=== PATIENT | female | born 1950 | race Caucasian/White ===

== ENCOUNTER 2020-03-29 16:04 | Outpatient (REF) | payer MEDICARE, SELFPAY | END 2020-03-29 16:05 | disposition home or self-care (01) | LOC: HO.MANLNP 16:04 | PROVIDERS: PCP Internal Medicine; Visit Provider Internal Medicine | DX: N39.0 Urinary tract infection, site not specified (principal) | CPT/HCPCS: 87086 ==

== ENCOUNTER → 2020-09-07 10:45 | Outpatient (BNVA) | payer MEDICARE, SELFPAY | PROVIDERS: PCP Internal Medicine; Visit Provider Orthopaedic Surgery | DX: M65.332 Trigger finger, left middle finger (principal) | CPT/HCPCS: 99202 ==

== ENCOUNTER → 2020-10-06 11:06 | Outpatient (BNVA) | payer MEDICARE, SELFPAY | PROVIDERS: Visit Provider Orthopaedic Surgery | DX: M65.332 Trigger finger, left middle finger (principal) | CPT/HCPCS: 99212; J1100 ==

== ENCOUNTER 2021-05-30 16:13 | Outpatient (REF) | payer MEDICARE, SELFPAY ==
[2021-05-30 17:49] LABS: Calcium 10.2 mg/dL (8.4-10.2)
[2021-05-31 14:20] LABS: Calcium (PTHI) 9.8 mg/dL (8.6-10.4); PTHI 35 pg/mL (14-64)
== END 2021-05-30 16:14 | disposition home or self-care (01) ==
LOC: HO.MANLDS 16:13
PROVIDERS: PCP Physician Assistant; Visit Provider Physician Assistant
DX: E83.52 Hypercalcemia (principal)
CPT/HCPCS: 36415; 82310; 83970

== ENCOUNTER → 2021-06-28 10:55 | Outpatient (BNVA) | payer MEDICARE, SELFPAY | PROVIDERS: PCP Physician Assistant; Visit Provider Orthopaedic Surgery | DX: M65.332 Trigger finger, left middle finger (principal); M65.351 Trigger finger, right little finger | CPT/HCPCS: 20550; 99212; J1100 ==

== ENCOUNTER 2021-09-28 13:46 | Emergency (ER) | payer MEDICARE, SELFPAY ==
--- NOTE | 2021-09-28 | ECG_ITS ---
Test Reason : HYPERTENTION Blood Pressure : / mmHG Vent. Rate : 082 BPM Atrial Rate : 082 BPM P-R Int : 154 ms QRS Dur : 126 ms QT Int : 408 ms P-R-T Axes : 068 -27 019 degrees QTc Int : 476 ms Normal sinus rhythm Right bundle branch block Inferior infarct , age undetermined Abnormal ECG No previous ECGs available Referred By: Generic ED Physician Electronically Signed By:Colt Grady
--- NOTE | ~2021-09-28 | CT_ITS ---
EXAMINATION: CT HEAD WITHOUT CONTRAST CLINICAL INFORMATION: 71-year-old female with severe headache COMPARISON: None TECHNIQUE: Contiguous axial imaging was performed from the skull base to vertex without intravenous administration of contrast. This CT examination was performed using dose optimization techniques as appropriate, variously including the following: *Automated exposure control *Adjustment of mA and/or kV according to patient size (this includes techniques or standardized protocols for targeted exams where dose is matched to indication/reason for exam; i.e. extremities or head) *Use of iterative reconstruction technique DLP: 676 mGy-cm FINDINGS: There is no evidence of acute intracranial hemorrhage or territorial infarction. No abnormal mass effect or midline shift is seen. Malcolm to white matter differentiation is well preserved. No extra-axial fluid collections are identified. The ventricles are normal in size. There is no abnormal attenuation within the brain parenchyma. The osseous structures and soft tissues are normal. The mastoid air cells and visualized portions of the paranasal sinuses are well aerated. CT/CT head/brain wo con IMPRESSION: No acute intracranial pathology.
[2021-09-28 14:45] VITALS: BP 214/110; PULSE 91; RESP 18; TEMP 36.6; O2SAT 96; BMI 29.0
[2021-09-28 15:14] LABS: MANUAL DIFF FLAG NO
[2021-09-28 15:17] LABS: Basophils Absolute Auto 0.1 X10*3/uL (0.0-0.2); Basophils Percent Auto 0.8 % (0-2); Eosinophils Absolute Auto 0.2 X10*3/uL (0.0-0.4); Eosinophils Percent Auto 2.6 % (0-4); Hematocrit 41.7 % (37.0-47.0); Imm Gran Abs Auto 0.02 X10*3/uL (0.00-0.03); Imm Gran Pct Auto 0.3 % (0.0-0.4); Lymphocytes Absolute Auto 1.4 X10*3/uL (1.2-4.9); Lymphocytes Percent Auto 23.1 % (20-40); Mean Corpuscular HGB Conc 33.6 g/dl (31.0-35.0); Mean Corpuscular Hemoglobin 31.9 pg (27.0-33.0); Monocytes Absolute Auto 0.6 X10*3/uL (0.1-1.2); Monocytes Percent Auto 8.9 % (2-11); Neutrophils Percent Auto 64.3 % (45-73); Platelet Count 317 X10*3/uL (160-400); Red Blood Count 4.39 X10*6/uL (4.20-5.50); Red Cell Distribution Width 12.1 % (11.0-16.0); White Blood Count 6.2 X10*3/uL (4.8-10.8)
[2021-09-28 15:29] LABS: Anion Gap 12 (12-20); Blood Urea Nitrogen 13 mg/dL (9-16); Calcium 9.8 mg/dL (8.4-10.2); Carbon Dioxide 27 mmol/L (22-29); Chloride 103 mmol/L (96-108); Creatinine Clr Calc Pharmacy 53.3; Estimated Glomerular Filt Rate > 60; Glucose Random 101 mg/dL (60-115); Potassium 4.4 mmol/L (3.3-5.1); Sodium 138 mmol/L (135-145)
[2021-09-28 17:07] VITALS: BP 187/103; PULSE 88; RESP 18; TEMP 36.3; O2SAT 97
[2021-09-28 19:20] VITALS: BP 205/95; PULSE 78; RESP 18; O2SAT 97
--- NOTE | 2021-09-28 19:37 | ED.GENADULT ---
HPI - General Adult General Chief complaint: General Medical Stated complaint: HBP Time Seen by Provider: 09/28/21 19:04 Source: patient Mode of arrival: ambulatory Limitations: no limitations History of Present Illness HPI narrative: Patient comes emergency room complaining of a headache and high blood pressure. Patient states that she has been on multiple blood pressure medications, has had multiple adverse effects, patient has a list, she is unwilling to take lisinopril, hydrochlorothiazide, amlodipine, metoprolol, clonidine and diltiazem. When I asked the patient what her adverse effects are, she says it is anxiety, mental fogginess. Patient did not describe any specific allergic reactions, only adverse effects. At this time, patient has mild headache, no chest pain or shortness of breath. Related Data Home Medications Medication Instructions Recorded Confirmed albuterol sulfate 90 mcg/actuation INHALATION 09/07/20 aerosol inhaler alprazolam 0.25 mg tablet 0.25 mg PO BID PRN 09/07/20 amlodipine 5 mg tablet 5 mg PO DAILY 09/07/20 fluticasone propionate 50 spray INTRANASAL 09/07/20 mcg/actuation nasal spray,suspension lisinopril 20 1 tab PO DAILY 09/07/20 mg-hydrochlorothiazide 12.5 mg tablet omeprazole 20 mg capsule,delayed 20 mg PO BID 09/07/20 release Previous Rx's Medication Instructions Recorded hydralazine 25 mg tablet 25 mg PO TID 30 Days #90 tab 09/28/21 Allergies Allergy/AdvReac Type Severity Reaction Status Date / Time No Known Allergies Allergy Verified 06/28/21 11:26 Review of Systems Review of Systems: Constitutional : No Weight loss, No Fever, No Chills, No Night Sweats, No Fatigue, No Malaise ENT/Mouth : No Hearing loss, No Ear Pain, No Nasal Congestion, No Sinus Pain, No Hoarseness, No sore throat, No Rhinorrhea, No Swallowing Difficulty Eyes: No Eye Pain, No Swelling, No Redness, No Foreign Body, No Discharge, No Vision Changes Cardiovascular : No Chest Pain, No SOB, No Dyspnea on Exertion, No Orthopnea, No Edema, No Palpitations, complaining of hypertension Respiratory : No Cough, No Sputum, No Wheezing, No Smoke Exposure, No Dyspnea Gastrointestinal : No Nausea, No Vomiting, No Diarrhea, No Constipation, No abdominal Pain, No Hematochezia, No Melena Genitourinary : no irregular bleeding, No Dysuria, No Urinary Frequency, No Hematuria, No Urinary Incontinence, No Urgency, No Flank Pain, No Urinary Flow Changes, No Hesitancy Musculoskeletal : No joint pain, No Myalgias, No Joint Swelling Skin : No Skin Lesions, No rash Neuro : No Weakness, No Numbness, No Paresthesias, No Loss of Consciousness, No Dizziness, c/o of Headache Psych : Complaining of anxiety, No Depression, No SI/HI/AH/VH, No Social Issues, Heme/Lymph: No Bruising, No Bleeding,No Lymphadenopathy Endocrine : No Polyuria, No Polydipsia, No Temperature Intolerance [facility] Past Medical History Medical History Asthma HTN (hypertension) Surgical History History of hernia repair History of spinal surgery Social History Social History Alcohol intake: never Advance Directives: Yes Advance Directives Information Provided: No Advance Directives on File: No Current occupational status: retired Current occupation: right handed Physical Exam ED Vital Signs: Vital Signs - 24 hr 09/28/21 14:45 09/28/21 17:07 09/28/21 19:20 Temperature 97.8 F 97.4 F Pulse Rate 91 88 78 Respiratory Rate 18 18 18 Blood Pressure 214/110 H 187/103 H 205/95 H Pulse Oximetry 96 97 97 09/28/21 20:28 09/28/21 20:59 Temperature Pulse Rate Respiratory Rate Blood Pressure 185/86 H 146/77 H Pulse Oximetry BMI result Body Mass Index 29.0 Const Other: Appearance: Alert. Oriented X3. No acute distress. Eyes: Pupils equal, round and reactive to light. ENT: Pharynx normal. Neck: Normal inspection. Neck supple. No lymph nodes noted. No crepitus CVS: Normal heart rate and rhythm. Pulses normal. Normal S1 and S2 Respiratory: No respiratory distress. Breath sounds normal. No Wheezing. No rales Abdomen: Soft and nontender. No rigidity. No distention. Skin: Skin warm and dry. Normal skin color. Normal skin turgor. Extremities: No lower extremity edema. No Lacerations. No Rash Neuro: Oriented X 3. No motor deficit. No sensory deficit. Moving all extremities. No slurred speech. CN 2 through 12 grossly intact Psych: calm, cooperative, normal affect Course Course Course Narrative: CT pending. Troponin pending. EKG does not show any acute changes. As mentioned above, patient does not want any medication that includes lisinopril, hydrochlorothiazide, amlodipine, metoprolol, clonidine oral diltiazem. Patient is being given hydralazine, current blood pressure 205/[address] is negative for brain bleed. Patient requested ibuprofen rather than Tylenol. Patient states that she has an appointment pending with Dr. Asencio/cardiology in approximately 1 week Patient's blood pressure 146/77, patient tolerated well the hydralazine with no side effects. CT scan negative for acute pathology Medical Decision Making Lab Data Result diagrams: 09/28/21 15:05 09/28/21 15:05 Labs: Lab Results 09/28/21 09/28/21 09/28/21 Range/Units 15:05 15:05 15:05 WBC 6.2 (4.8-10.8) X10*3/uL RBC 4.39 (4.20-5.50) X10*6/uL Hgb 14.0 (12.0-16.0) g/dl Hct 41.7 (37.0-47.0) % MCV 95.0 (80.0-98.0) fL MCH 31.9 (27.0-33.0) pg MCHC 33.6 (31.0-35.0) g/dl RDW 12.1 (11.0-16.0) % Plt Count 317 (160-400) X10*3/uL MPV 9.0 L (9.4-12.3) fL Immature Gran % (Auto) 0.3 (0.0-0.4) % Neut % (Auto) 64.3 (45-73) % Lymph % (Auto) 23.1 (20-40) % Preston % (Auto) 8.9 (2-11) % Eos % (Auto) 2.6 (0-4) % Baso % (Auto) 0.8 (0-2) % Lymph # (Auto) 1.4 (1.2-4.9) X10*3/uL Preston # (Auto) 0.6 (0.1-1.2) X10*3/uL Eos # (Auto) 0.2 (0.0-0.4) X10*3/uL Baso # (Auto) 0.1 (0.0-0.2) X10*3/uL Abs Immat Gran (auto) 0.02 (0.00-0.03) X10*3/uL Absolute Neuts (auto) 4.0 (2.0-8.3) x10*3/uL Absolute Nucleated RBC 0.000 (0.0-0.012) X10*3/uL Nucleated RBC % (auto) 0.0 (0.0-0.2) /100WBC Sodium 138 (135-145) mmol/L Potassium 4.4 (3.3-5.1) mmol/L Chloride 103 (96-108) mmol/L Carbon Dioxide 27 (22-29) mmol/L Anion Gap 12 (12-20) BUN 13 (9-16) mg/dL Creatinine 0.74 (0.5-1.4) mg/dL Estim Creat Clear Calc 53.3 Estimated GFR > 60 Random Glucose 101 (60-115) mg/dL Calcium 9.8 (8.4-10.2) mg/dL Troponin I High Sens 4.3 (<3.5-17.0) ng/L Imaging Data Head CT: Radiologist's impression: FINDINGS: There is no evidence of acute intracranial hemorrhage or territorial infarction. No abnormal mass effect or midline shift is seen. Malcolm to white matter differentiation is well preserved. No extra-axial fluid collections are identified. The ventricles are normal in size. There is no abnormal attenuation within the brain parenchyma. The osseous structures and soft tissues are normal. The mastoid air cells and visualized portions of the paranasal sinuses are well aerated. ? CT/CT head/brain wo con IMPRESSION: No acute intracranial pathology. Discharge Plan Discharge Clinical Impression: Hypertensive urgency Patient Disposition: Home, Self-Care Instructions: Hypertension in the Older Adult (ED) Additional Instructions: Please follow-up with your primary care physician tomorrow. If you have any worsening or new symptoms, please return to the emergency room or call 911 Prescriptions: New hydralazine 25 mg tablet 25 mg PO TID 30 Days Qty: 90 0RF No Action fluticasone propionate 50 mcg/actuation spray,suspension intranasal 0RF omeprazole 20 mg capsule,delayed release(DR/EC) 20 mg PO BID 0RF amlodipine 5 mg tablet 5 mg PO DAILY 0RF lisinopril-hydrochlorothiazide 20-12.5 mg tablet 1 tab PO DAILY 0RF albuterol sulfate 90 mcg/actuation HFA aerosol inhaler inhalation 0RF alprazolam 0.25 mg tablet 0.25 mg PO BID PRN0RF
[2021-09-28] MEDS: hydrALAZINE HCl 50 MG TABLET PO (19:50)
[2021-09-28 20:20] LABS: Troponin-I High Sensitivity 4.3 ng/L (<3.5-17.0)
[2021-09-28 20:28] VITALS: BP 185/86
[2021-09-28] MEDS: Ibuprofen 600 MG TABLET PO (20:55)
[2021-09-28 20:59] VITALS: BP 146/77
== END 2021-09-28 21:21 | disposition home or self-care (01) ==
PROVIDERS: Emergency Provider Emergency Medicine; PCP Internal Medicine
DX: I16.0 Hypertensive urgency (principal); R51.9 Headache, unspecified; I10 Essential (primary) hypertension; Z79.899 Other long term (current) drug therapy
CPT/HCPCS: 36415; 70450; 80048; 84484; 85025; 93005; 99283; 99284

== ENCOUNTER → 2021-10-10 12:16 | Outpatient (BNVA) | payer MEDICARE, SELFPAY | PROVIDERS: PCP Physician Assistant; Referring Provider Physician Assistant; Visit Provider Internal Medicine Cardiovascular Disease | DX: I10 Essential (primary) hypertension (principal) | CPT/HCPCS: 99202 ==

== ENCOUNTER 2021-12-14 15:37 | Outpatient (REF) | payer MEDICARE, SELFPAY ==
[2021-12-18 12:27] LABS: A. Phagocytophilum Ab IgG <1:64 (<1:64); A. Phagocytophilum Ab IgM <1:20 (<1:20); E. Chaffeensis Ab IgG <1:64 (<1:64); E. Chaffeensis Ab IgM <1:20 (<1:20)
[2021-12-18 12:53] LABS: Babesia IgG <1:64 titer (<1:64); Babesia IgM <1:20 titer (<1:20)
== END 2021-12-14 15:38 | disposition home or self-care (01) ==
LOC: HO.MANLDS 15:37
PROVIDERS: Visit Provider Physician Assistant
DX: R53.83 Other fatigue (principal)
CPT/HCPCS: 36415; 86666; 86753

== ENCOUNTER 2024-04-18 14:26 | Outpatient (AMB) | payer MEDICARE, SELFPAY ==
--- OUTSIDE RECORDS SUMMARY | 2024-04-18 14:29 | XMS_ITS | Data Portability ---
Author Organization [facility] Home Service Address [address] [place] [address] Assessment Encounter Date Assessment Date Assessment LastModified by Organization Details LastModified Time 11/22/2021 11/22/2021 Patient agreed and verbally consents to this audio and video Telehealth appt via a secure platform [email or web address] Not available 11/22/2021 16:33:31 12/05/2021 12/05/2021 [id number] [place] [id number] (ROLL UP GUIDER OPERATOR) MDM MODERATE MUST MEET 2 OUT OF 3 ELEMENTS: PROBLEMS, DATA OR RISK ELEMENT 1: PROBLEMS ADDRESSED 1 OR MORE CHRONIC ILLNESS WITH EXACERBATION OR 2 OR MORE STABLE CHRONIC ILLNESSES OR 1 UNDIAGNOSED NEW PROBLEM OR 1 ACUTE ILLNESS W/SYMPTOMS OR 1 ACUTE COMPLICATED INJURY ELEMENT 2: DATA MUST MEET 1 OF 3 CATEGORIES CATEGORY 1: REVIEW OF PRIOR EXTERNAL NOTES, REVIEW OF RESULTS, ORDERING OF EACH TEST, ASSESSMENT REQUIRING INDEPENDENT HISTORIAN OR CATEGORY 2: INDEPENDENT INTERPRETATION OF TESTS BY ANOTHER PHYSICIAN OR SPECIALIST OR CATEGORY 3: DISCUSSION OF MGT OR TEST INTERPRETATION W/EXTERNAL PHYSICIAN OR SPECIALIST ELEMENT 3: RISK RISK OF COMPLICATIONS AND/OR MORBIDITY OR MORTALITY OF PATIENT MANAGEMENT PROVIDER MUST THOROUGHLY DOCUMENT EACH ELEMENT THAT IS COVERED Not available 12/05/2021 15:44:43 Plan of Treatment Reminders Order Date Submit Date Provider Last Modified By Organization Details Last Modified Time Details Appointments None recorded. Lab None recorded. Referral fertilizer supervisor referral 2021 022 apeterson [address] [facility], [address] [place], [address], 08:20:45 Procedures None recorded. Surgeries None recorded. Imaging XR, sinuses, paranasal, 3 or more view 2021 022 CINDA Not available 14:14:06 Medication Orders alprazolam 0.25 mg tablet 2021 022 [facility] [address] [place], [address], 16:28:34 citalopram 10 mg tablet 2021 [facility]22 [facility] [address] [place], [address], 14:20:09 doxycycline hyclate 100 mg tablet 2021 [address]22 [address] [place], [address], 15:22:45 benzonatate 200 mg capsule 2021 [address]22 [address] [place], [address], 15:22:32 prazosin 1 mg capsule 2021 022 [facility] [address] [place], [address], 09:55:54 clotrimazol e-betametha sone 1 %-0.05 % topical cream 2021 022 [facility], [address] [place] [address], [address], 2 10:31:45 captopril 12.5 mg tablet 2021 022 [facility], [address] [place] [address], [address], 2 12:15:19 clobetasol 0.05 % scalp solution 2021 022 [facility], [address] [place] [address], [address], 10:33:54 venlafaxine 37.5 mg tablet 2021 022 [facility], [address] [place] [address], [address], 10:20:13 Patient TargetsNo targets recorded. Patient Instructions Encounter Date Encounter Id Patient Instructions Last Modified By Organization Details Last Modified Time 12/05/2021 [id number] pulse oximetry* Not available 12/05/2021 15:48:06 controlling your asthma: care instructions Not available 12/05/2021 15:48:06 learning about asthma Not available 12/05/2021 15:48:06 Reason for Referral Pyrometer Temperature Regulator Referral for Gener alized rash fatigue, blood pressure issues and ongoing rash Referring Physician: Aletha Church, Internal Medicine, Encounter Date: 01/02/2022 Results Created Date Observation Date Name Description Value Unit Range Abnormal Flag Note LastModifiedBy Organization Detail LastModifiedTime 10/19/19 22 10/18/2021 pulse oxime try* Result 98 Not Available [address] [place], [address], 10/18/2021 11:00:19 12/06/19 22 12/05/2021 pulse oxime try* Result 97 Not Available [address] [place], [address], 12/05/2021 15:39:34 11/04/19 22 11/03/2021 US, echoc ardio gram No observ ation record ed. eric [address] [place], [address], 11/04/2021 14:35:34 11/05/19 22 11/04/2021 US, duple x, renal arter y No observ ation record ed. [email or web address] [facility] (Mammo) [address], [place], [address], 11/04/2021 11:46:34 12/11/19 22 12/09/2021 XR, sinus es, paran ramon, 3 or more view No observ ation record ed. [email or web address] [facility] [address] [place], [address], 12/12/2021 08:26:22 12/13/19 22 12/12/2021 XR, chest , 2 view No observ ation record ed. [email or web address] Not Available 2021 16:06:04 02/04/20 22 02/03/2022 CT, head, w/o contr ast No observ ation record ed. [facility] (Emergency Room) [address] [place], [address], 02/04/2022 09:29:34 Result Notes None recorded. Problems Name Problem SNOMED Code Status Onset Date Resolution Date Notes Provider Name and Address Organization Details Recorded Time Tobacco dependence syndrome 48700233 Active 2017 Not Available [facility] 2 06:25:17 Degeneration of cervical intervertebra l disc 34516980 Active 2018 Not Available [facility] 2 06:25:16 Excision of lumbar intervertebra l disc Active 2019 Not Available [facility] 2 06:25:17 Degeneration of lumbar intervertebra l disc and osteophyte of lumbar vertebra 748380637 Active 2019 Not Available [facility] 2 06:25:17 Hypertensive disorder 51883989 Active 2020 Not Available [facility] 2 06:25:16 Insomnia 135132164 Active 2020 Not Available [facility] 2 06:25:17 Malignant hypertension 89468706 Active 2021 Not Available [facility] 2 06:25:16 Essential hypertension 43398909 Active 2021 Not Available [facility] 2 06:25:16 Seborrheic keratosis 177092915 Active 2021 Not Available [facility] 2 06:25:16 Lipoma of upper arm 718328334 Active 2021 Not Available [facility] 2 06:25:16 Acute bronchitis 18765608 Active 2021 INA BULLOCK [address],[place], [address] , [facility] 2 16:25:06 Cough 56385748 Active 2021 INA BULLOCK [address],[place], [address] , [facility] 2 15:53:32 Acute sinusitis 11128083 Active 2021 Tomy Caceres, [address],[place], [address] , [facility] 2 15:49:52 Fatigue 82672424 Active 2021 INA BULLOCK [address],[place], [address] , [facility] 2 14:35:00 Generalized rash 345004807 Active 2021 INA BULLOCK [address],[place], [address] , [facility] 2 14:41:03 Pruritic rash 05280852 Active 2021 INA BULLOCK [address],[place], [address] , [facility] 2 10:29:44 Seborrheic dermatitis of scalp 916765730 Active 2021 INA BULLOCK [address],[place], [address] , [facility] 2 10:31:15 Migraine 05439919 Active 2021 INA BULLOCK [address],[place], [address] , [facility] 2 13:44:53 Anxiety 94034055 Active 2017 Not Available [facility] 2 06:25:17 Asthma 038955888 Active 2017 Not Available [facility] 2 06:25:17 Chronic obstructive pulmonary disease 58064664 Active 2017 Not Available [facility] 2 06:25:17 Depressive disorder 29174002 Active 2017 Not Available [facility] 2 06:25:16 Dyslipidemia 508276326 Active 2017 Not Available [facility] 2 06:25:16 Incontinence of feces 91050166 Active 2017 Not Available [facility] 2 06:25:16 Gastroesophag eal reflux disease 650661023 Active 2017 Not Available [facility] 2 06:25:17 Notes:Some problems listed i n Documents: #[id number], #[id number], #[id number], #[id number] could not be added to this patient's chart. Please review these documents and add these problems to the patient's chart manually as needed. Problem Notes None recorded. Procedures Surgical History Date Name Laterality Status Provider Name and Address Organization Details Recorded Time 0 Removal of Foreign Body completed Tomy Caceres DO [address] [place], [address], [facility] 09/26/2019 14:05:29 4 Date of Last Pap Smear completed [facility] 07/06/2020 14:02:54 4 Most Recent Mammogram completed [facility] Internal [facility] 07/06/2020 14:02:54 4 Back Surgery completed Geneva Auguste NP, S [address], [place], [address], [facility] 10/03/2017 10:31:37 9 completed [facility] 07/06/2020 14:02:54 9 Hernia repair w/mesh completed Geneva Auguste NP, [address] [place], [address], [place] [facility] 10/03/2017 10:32:01 Imaging Results Imaging Date Name Status LastModified by Organization Details LastModified Time 11/03/2021 US, echocardiogram completed eric Peterson d Address [address] [place], [address], 11/04/2021 14:35:34 11/04/2021 US, duplex, renal artery completed [email or web address] [facility] (Mammo) [address] [place] [address], [address], 11/04/2021 11:46:34 12/09/2021 XR, sinuses, paranasal, 3 or more view completed [email or web address] [facility] [address] [place] [address], [address], 12/12/2021 08:26:22 12/12/2021 XR, chest, 2 view completed [email or web address] Informa tion not available 12/12/2021 16:06:04 02/03/2022 CT, head, w/o contrast completed [facility] (Emergency Room) [address] [place] [address], [address], 02/04/2022 09:29:34 Procedure Notes None recorded. Medical Equipment None Reported. Allergies Allergen ID Allergen Name Allergen Category Reaction Reaction Severity Criticality Documentation Date Start Date Code Code System Note Provider Name and Address Organization Details Recorded Time 1469 albuterol medicatio n Not available Not available Not available 10/02/2017 435 RxNorm pro air- agita tion Gracy Brittany abreu [facility] 8 10:32:48 1470 Benadryl medicatio n Not available Not available Not available 10/02/201707719 7 RxNorm agita tion Gracy Balicki lois [facility] 8 10:34:53 1471 Cipro medicatio n Not available Not available Not available 10/02/201761756 3 RxNorm pt state s she is not aller [facility] Tomy FraciscoVicente Caceres, DO 6 [facility] [place], [address], [facility] Internal [facility] 0 10:34:24 1472 clonazepa m medicatio n Not available Not available Not available 10/02/2017 2598 RxNorm menta lly foggy , forge tful, fatig ue, thoug ht proce ss slow, agita ashley, angry , weak Gracychris Steinicki [facility] 8 10:40:53 1473 escitalop jennifer Not available Not available Not available Not available 10/02/2017 73446 8 RxNorm Heada ches, no ambit ion, leg spasm s, not menta lly sharp Gracychris Steinicki [facility] 8 10:39:25 1474 gabapenti n medicatio n nausea Not available Not available 10/02/2017 75978 RxNorm inabl ity to sleep , anxie ty, inabl ity to physi filipe and menta lly funti on Gracy Steinicki [facility] 8 10:37:06 1475 paroxetin e Not available Not available Not available Not available 10/02/2017 68081 RxNorm sever depre ssion Gracy Balicki [facility] 8 10:33:34 1476 prednison e medicatio n Not available Not available Not available 10/02/2017 8640 RxNorm agita tion Gracychris Steinicki [facility], [facility] 8 10:34:00 1477 Tamiflu medicatio n diarrhea Not available Not available 10/02/2017 32590 7 RxNorm Gracy Balicki [facility], [facility] 8 15:53:38 1478 trazodone medicatio n Not available Not available Not available 10/02/2017 52530 RxNorm Gracy Balicki [facility] 8 15:53:47 1483 cyclobenz aprine medicatio n insomnia Not available Not available 10/03/2017 92784 RxNorm [facility] 8 10:42:15 5752 lisinopri l medicatio n other Not available Not available 09/27/2021 35091 RxNorm memor y loss, fatig ue INA BULLOCK [address] [facility],[place], [address], [facility] 2 13:47:24 6022 prazosin medicatio n Not available Not available Not available 01/25/2022 8629 RxNorm tachy cardi a, brain fog INA BULLOCK 6 [facility] [place], [address], [facility] 2 13:46:37 6023 olmesarta n medicatio n Not available Not available Not available 01/25/2022 66901 4 RxNorm hypot ensio n, brain fog INA BULLOCK 6 [facility] [place], [address], [facility] 2 10:06:57 Medications Name Sig Start Date Stop Date Status Note LastModified by Organization Details LastModified Time amoxicillin 500 mg capsule 11/13 completed Not Available Not Available Not Available furosemide 40 mg tablet TAKE 1 TABLET BY MOUTH EVERY DAY FOR 30 DAYS active Not Available Not Available No t Available clonidine HCl 0.1 mg tablet Take 1 tablet twice a day by oral route for 30 days. 09/27 completed Not Available Not Available Not Available doxycycline hyclate 100 mg capsule Take 1 capsule twice a day by oral route for 10 days. 03/05 completed Not Available Not Available Not Available atorvastati n 10 mg tablet Take 1 tablet every day by oral route. 10/12 completed Not Available Not Available Not Available lisinopril 20 mg-hydrochl orothiazide 12.5 mg tablet TAKE 1 TABLET BY MOUTH EVERY DAY active Not Available Not Available No t Available azithromyci n 250 mg tablet 10/03 completed Not Available Not Available Not Available diltiazem CD 180 mg capsule,ext ended release 24 hr TAKE 1 CAPSULE BY MOUTH EVERY DAY 11/11 completed Not Available Not Available Not Available benzonatate 200 mg capsule TAKE 1 CAPSULE BY MOUTH THREE TIMES A DAY FOR 2 WEEKS 12/05 completed Not Available Not Available Not Available citalopram 10 mg tablet TAKE 1 TABLET BY MOUTH EVERY DAY 01/02 completed Not Available Not Available Not Available prazosin 1 mg capsule TAKE 1 CAPSULE BY MOUTH EVERY DAY 2021 active Not Available Not Available Not Avai lable phenazopyri dine 200 mg tablet TAKE 1 TABLET BY MOUTH THREE TIMES A DAY NEEDED FOR 5 DAYS 10/12 completed Not Available Not Available Not Available lisinopril 20 mg tablet TAKE 1 TABLET BY MOUTH ONCE A DAY IN ADDITION TO 20/12.5 COMBINATI ON TABLET active Not Available Not Available No t Available valsartan 80 mg tablet active Not Available Not Available Not Available hydralazine 25 mg tablet TAKE 1 TABLET BY MOUTH THREE TIMES A DAY 10/18 completed Not Available Not Available Not Available amlodipine 5 mg tablet Take 2 tablets every day by oral route for 90 days. active Not Available Not Available No t Available sulfamethox azole 800 mg-trimetho prim 160 mg tablet Take 1 tablet every 12 hours by oral route for 10 days. 01/29 completed Not Available Not Available Not Available tramadol 50 mg tablet Take 1 tablet every 6 hours by oral route as needed for 7 days. active Not Available Not Available No t Available spironolact one 25 mg tablet TAKE 1 TABLET BY MOUTH EVERY DAY FOR 30 DAYS 12/05 completed Not Available Not Available Not Available alprazolam 0.25 mg tablet TAKE 1 TABLET BY MOUTH ONCE DAILY NEEDED active Not Available Not Available No t Available captopril 12.5 mg tablet Take 1 tablet every day by oral route for 30 days. 02/03 completed Not Available Not Available Not Available tamsulosin 0.4 mg capsule TAKE 1 CAPSULE BY MOUTH EVERY DAY active Not Available Not Available No t Available betamethaso ne valerate 0.1 % topical cream APPLY A THIN LAYER TO THE AFFECTED AREA(S) BY TOPICAL ROUTE ONCE DAILY for 10 days 08/05 completed Not Available Not Available Not Available amlodipine 10 mg tablet TAKE 1 TABLET BY MOUTH EVERY DAY 08/05 completed Not Available Not Available Not Available venlafaxine 37.5 mg tablet Take 1 tablet every day by oral route for 30 days. 2021 active Not Available Not Available Not Avai lable clotrimazol e-betametha sone 1 %-0.05 % topical cream APPLY TO THE AFFECTED AND SURROUNDI NG AREAS OF SKIN BY TOPICAL ROUTE 2 TIMES PER DAY IN THE MORNING AND EVENING FOR 2 WEEKS 2021 active Not Available Not Available Not Avai lable losartan 25 mg tablet 10/18 completed Not Available Not Available Not Available omeprazole 20 mg capsule,del ayed release TAKE 1 CAPSULE BY MOUTH TWICE A DAY active Not Available Not Available No t Available lisinopril 20 mg-hydrochl orothiazide 25 mg tablet Take 1 tablet every day by oral route. 03/12 completed Not Available Not Available Not Available codeine 10 mg-guaifene sin 100 mg/5 mL oral liquid Take 10 mL 3 times a day by oral route as needed for 7 days. 01/02 completed Not Available Not Available Not Available hydralazine 50 mg tablet TAKE 2 TABLET BY MOUTH EVERY 12 HOURS 01/25 completed Not Available Not Available Not Available lisinopril 5 mg tablet TAKE 1 TABLET BY MOUTH EVERY DAY active Not Available Not Available No t Available diclofenac sodium 50 mg tablet,daniel yed release Take 1 tablet twice a day by oral route for 10 days. 09/27 completed Not Available Not Available Not Available zolpidem 5 mg tablet Take 1 tablet every day by oral route for 30 days. 07/18 completed Not Available Not Available Not Available metoprolol succinate ER 25 mg tablet,exte nded release 24 hr Take 1 tablet every day by oral route for 90 days. 08/05 completed Not Available Not Available Not Available levofloxaci n 500 mg tablet TAKE 1 TABLET BY MOUTH EVERY 24 HOURS FOR 8 DAYS 07/06 completed Not Available Not Available Not Available albuterol sulfate HFA 90 mcg/actuati on aerosol inhaler PLEASE SEE ATTACHED FOR DETAILED DIRECTION S active Not Available Not Available No t Available ketoconazol e 2 % topical cream APPLY TO AFFECTED AREA EVERY DAY 08/05 completed Not Available Not Available Not Available clobetasol 0.05 % scalp solution APPLY TO THE AFFECTED SCALP AREA BY TOPICAL ROUTE 2 TIMES PER DAY IN THE MORNING AND EVENING 2021 active Not Available Not Available Not Avai lable fluticasone propionate 50 mcg/actuati on nasal spray,suspe nsion 10/18 completed PRN Not Available Not Available Not Available doxycycline hyclate 100 mg tablet TAKE 1 TABLET BY MOUTH TWICE A DAY FOR 10 DAYS 12/05 completed Not Available Not Available Not Available valsartan 160 mg tablet Take 1 tablet every day by oral route for 30 days. active Not Available Not Available No t Available olmesartan 20 mg tablet TAKE 1 TABLET BY MOUTH EVERY DAY active Not Available Not Available No t Available azithromyci n 500 mg tablet 05/30 completed Not Available Not Available Not Available nitrofurant oin monohydrate /macrocryst als 100 mg capsule Take 1 capsule every 12 hours by oral route for 10 days. 07/06 completed Not Available Not Available Not Available Flovent HFA 220 mcg/actuati on aerosol inhaler Inhale 1 puff twice a day by inhalatio n route. 11/13 completed Not Available Not Available Not Available Xopenex HFA 45 mcg/actuati on aerosol inhaler Inhale 2 puffs every 6 hours by inhalatio n route. 10/21 completed Not Available Not Available Not Available omeprazole 20 mg tablet,daniel yed release Take 1 tablet every day by oral route. 2021 active Not Available Not Available Not Avai lable Spiriva Respimat 2.5 mcg/actuati on solution for inhalation Inhale 2 puffs every day by inhalatio n route for 30 days. 2018 active Not Available Not Available Not Avai lable Incruse Ellipta 62.5 mcg/actuati on powder for inhalation inhale 1 puff qd 10/12 completed Not Available Not Available Not Available Breo Ellipta 200 mcg-25 mcg/dose powder for inhalation INHALE 1 PUFF BY MOUTH EVERY DAY active Not Available Not Available No t Available Vitals Date Recorded Body height Oxygen saturation Oxygen saturation in Arterial blood by Pulse oximetry Heart rate Systolic blood pressure Diastolic blood pressure Provider Name and Address Organization Details Last Updated DateTime 2 148.59 cm 97 % 97 % 86 /min 170 mm[Hg] 64 mm[Hg] Jemma López [facility] 2 15:43:13 Date Recorded Body height Heart rate Oxygen saturation Oxygen saturation in Arterial blood by Pulse oximetry Systolic blood pressure Diastolic blood pressure Provider Name and Address Organization Details Last Updated DateTime 2 148.59 cm 75 /min 97 % 97 % 146 mm[Hg] 90 mm[Hg] Tomy FraciscoVicente Caceres, DO [address] [place], [address] [place] [address] Internal Medicine 2 15:22:08 Date Recorded Body height Oxygen saturation Oxygen saturation in Arterial blood by Pulse oximetry Heart rate Systolic blood pressure Diastolic blood pressure Provider Name and Address Organization Details Last Updated DateTime 2 148.59 cm 97 % 97 % 74 /min 158 mm[Hg] 72 mm[Hg] Jemma López [facility] 2 14:22:04 Date Recorded Body height Oxygen saturation Oxygen saturation in Arterial blood by Pulse oximetry Heart rate Systolic blood pressure Diastolic blood pressure Provider Name and Address Organization Details Last Updated DateTime 2 148.59 cm 99 % 99 % 79 /min 162 mm[Hg] 72 mm[Hg] Jemma López [facility] 2 09:58:18 Social History Question Answer Notes LastModified by Organizat ion Details LastModified Time Tobacco Smoking Status Current Every Day Smoker Not Available [facility]/09/2020 03:36:24 What Is Your Level Of Alcohol Consumption? None Information not available 07/06/2020 What Is Your Level Of Caffeine Consumption? None Information not available 07/06/2020 What Was The Date Of Your Most Recent Tobacco Screening? 12/05/2021 Information not available 12/05/2021 How Much Tobacco Do You Smoke? 0.5 PPD 1/2 - 1 Pack Per Day [email or web address] Information not available 09/27/2021 Do You Or Have You Ever Used Any Other Forms Of Tobacco Or Nicotine? No Information not available 07/18/2021 Sex: Unknown Functional Status Question Answer Note LastModified by Organization D etails LastModified Time What is your exercise level? None Information not available 07/06/2020 Mental Status None recorded. Family History Relationship Description Onset Age of this Age Resolved Age Notes LastModified by Organization Details LastModified Time Father Coronary arterioscler osis 65 [email or web address] Not available 2017 10:30:01 Mother Congestive heart failure 82 [email or web address] Not available 2021 09:23:40 Brother Congestive heart failure 63 [email or web address] Not available 2021 09:23:40 Medical History Condition Response Coronary Artery Disease N Gout N Other N Blood Diseases N Kidney Stones N Hyperthyroidism N Blood Transfusion N Breast Cancer N Lung Disease N Hypothyroidism N Depression Y COPD N Defects or Inherited Disease N Difficulty Swallowing N Anesthesia Complications N Anxiety Disorder Y Meniere's disease N Muscle, Joint, or Bone Problems N Obesity N Vision or Eye Problems N Arthritis Infertility N Polyps N Mental Disorder N Cancer N Varicosities Y Stroke N Endometriosis N Bladder or Kidney Problems High Cholesterol Liver Disease N Headaches N Fibromyalgia N Kidney Disease N Allergies/Hayfever Y Heart Problems N Hospitalizations N Thyroid Problems N GI Problems N Eating Disorder Y Skin Problems N Anemia N MRSA exposure N Constipation N Mental Illness Y Diabetes N Ovarian Cancer N Seizures/Epilepsy N Tuberculosis N Congestive Heart Failure (CHF) N Eczema N Abuse/Domestic Violence N Diverticulitis N Asthma Y Reflux/GERD Y Hepatitis N Heart Disease N Pulmonary Embolism N Chronic Ear Infections N Hypertension Y Chicken Pox Y Autism Spectrum Disorder (ASD) N Osteoporosis N Thrombophilias N Gynecological History Statement/Question Response 10/17/1998 N On BCP's at Conception? N STIs/STDs N HPV Vaccine N Most Recent Mammogram 11/16/2013 Age at Menarche 9 Age at First Child 24 If Post Menopausal, Age at Menopause 48 Date of Last Pap Smear 12/22/2013 Sexual Problems? N N Obstetrics History GPAL:G 0 P 0 0 0 0 Immunizations Vaccine Type Date Status Note Provider Nam e and Address Organization Details Recorded Time COVID-19 vaccine, vector-nr, rS-Ad26, PF, 0.5 mL 07/10/2020 completed Not Available [facility] 3 15:28:41 COVID-19, mRNA, LNP-S, PF, 30 mcg/0.3 mL dose 04/15/2021 completed Not Available [facility] 2 10:58:50 Tdap 06/27/2007 completed Not Available [facility] 02/23/2022 10:58:50 Past Encounters Encounter ID Performer Location Encounter Start Date Encounter Closed Date Diagnosis/Indication Diagnosis SNOMED-CT Code Diagnosis ICD10 Code [id number] Geneva Auguste NP, S [address] [address] 10/03/2017 10:00:08 10/03/2017 12:07:06 Heart murmur 10598870 R01.1 Tobacco de pendence syndrome 78218153 F17.200 Essential hypertension 30673058 I10 Anxiety 40049965 F41.9 Moderate p ersistent asthma 464247327 J45.40 Gastroesop hageal reflux disease 512357910 K21.9 4668 Tomy Finleykarolina, [address] [address] 11/13/2017 13:41:01 11/13/2017 14:37:16 Systolic murmur 61666197 R01.1 Anxiety 89205904 F41.9 Cramp in lower limb 4499 84707 R25.2 Essential hypertension 75934414 I10 5857 [address]res [address] [address] 12/07/2017 11:09:31 12/07/2017 14:17:57 Rotator cuff syndrome 1800026 M75.102 [id number] Geneva Auguste NP, S [address] [address] 02/25/2018 14:22:11 02/27/2018 09:05:08 Chill 86005324 R68.83 Dysuria-fr equency syndrome 3566580 R30.0 Multiple joint pain 3567 8005 M25.50 Chronic ob structive pulmonary disease 21286350 J44.9 Gastroesop hageal reflux disease 784151375 K21.9 Dyslipidemia 846811325 E 78.5 Tick bite 03365989 W57.X XXA 07757 Tomy Caceres [address] [address] 03/12/2018 13:29:10 03/12/2018 14:26:45 Recurrent urinary tract infection 219262628 N39.0 Asthma 006509994 J45.90 9 Chronic ob structive pulmonary disease 36214539 J44.9 Tobacco de pendence syndrome 72569696 F17.200 [id number] Geneva Auguste, ROLL UP GUIDER OPERATOR, S [address] [address] 09/03/2018 11:33:33 09/03/2018 15:21:05 Tick bite 00865193 W57.XXXA [id number] Tomy Caceres DO [address] [address] 10/21/2018 11:48:18 10/21/2018 12:41:25 Chronic obstructive pulmonary disease 01157469 J44.9 Strain of left trapezius muscle 8420284363 8719350 S29.012A Neck pain 19983465 M54.2 07276 Tomy Caceres DO [address] [address] 11/29/2018 11:55:48 11/29/2018 12:21:22 Degenerative cervical spinal stenosis 999883020 M48.02 83972 Tomy Caceres DO [address] [address] 02/19/2019 13:49:54 02/19/2019 14:56:14 Asthma 786039023 J45.909 Degenerati on of cervical intervertebral disc 14743469 M50.30 Tick bite 88677638 W57.X XXA Malaise and fatigue 2717 82576 R53.81 10805 Tomy Caceres DO [address] [address] 0 03/05/2019 13:21:11 03/05/2019 14:31:06 Asthma 084548843 J45.909 Chronic ob structive pulmonary disease 31676644 J44.9 Degenerati on of cervical intervertebral disc 91046479 M50.30 Pain of le ft shoulder joint 8615619228 8611879 M25.512 55486 Tomy Caceres DO [address] [address] 03/28/2019 11:14:35 03/28/2019 12:07:39 Adult health examination 699064303 Z00.00 Chronic ob structive pulmonary disease 99225956 J44.9 Tobacco de pendence syndrome 19540816 F17.200 Gastroesop hageal reflux disease 159210866 K21.9 Anxiety 50775895 F41.9 38466 Tomy Caceres [address] [address] 05/30/2019 11:14:11 05/30/2019 12:18:23 Chronic obstructive pulmonary disease 18624278 J44.9 Gastroesop hageal reflux disease 171534058 K21.9 Anxiety 47574527 F41.9 Trigger fi nger of left hand 4007160781 9873077 M65.30 72114 Tomy Caceres DO [address] [address] 09/16/2019 14:22:38 09/16/2019 14:55:46 Chronic obstructive pulmonary disease 48157415 J44.9 Headache 30587822 R51 Seasonal allergy 9642003 04 J30.2 Mild memor y disturbance 729095657 R41.3 23422 Tomy Caceres DO [address] [address] 09/26/2019 13:54:23 09/26/2019 14:41:31 Asthma 932182533 J45.909 Tick bite 46831242 W57.X XXA [address] BULLOCK [address] [address] 11/14/2019 14:27:02 11/14/2019 16:22:25 Acute urinary tract infection 465168853 N39.0 [id number] INA BULLOCK [address] [address] 12/31/2019 11:31:05 12/31/2019 12:31:58 Dysuria 51301181 R30.9 Asthma 944589621 J45.90 9 [id number] Tomy Caceres DO [address] [place] [address] 01/30/2020 14:03:18 01/30/2020 14:44:54 Asthma 581174355 J45.909 Degenerati on of lumbar intervertebral disc and osteophyte of lumbar vertebra 831787675 M51.36 90821 Tomy Caceres [address] [address] 02/24/2020 09:38:22 02/24/2020 10:43:34 Acute urinary tract infection 111015278 N39.0 08732 INA BULLOCK [address] [address] 0 07/06/2020 13:51:08 07/07/2020 11:15:12 Asthma 023398663 J45.909 Dyspnea 311840427 R06.00 Anxiety 19105176 F41.9 Chronic ob structive pulmonary disease 18193703 J44.9 88629 Tomy Caceres DO [address] [address] 10/12/2020 11:44:15 10/12/2020 12:16:59 Active or passive immunization 469013089 Z23 Adult heal th examination 743574052 Z00.01 [id number] INA BULLOCK [address] [address] 0 11/17/2020 11:33:48 11/17/2020 12:30:51 Seborrheic dermatitis of scalp 107837670 L21.0 [address]NA BULLOCK [address] [address] 0 03/23/2021 10:24:42 03/23/2021 16:36:38 Anxiety 09195827 F41.1 Insomnia 528241759 G47.0 9 Essential hypertension 97721641 I10 Osteoarthritis 967569127 M19.011 Varicose v eins of lower extremity with inflammation 15597822 I83.11 87540 Tomy Caceres DO [address] [address] 04/20/2021 08:27:15 04/20/2021 13:53:21 Hypertensive disorder 99326749 I10 Tobacco de pendence syndrome 10584165 F17.200 Insomnia 520762367 G47.0 0 63107 Tomy Caceres DO [address] [address] 04/26/2021 11:11:38 04/26/2021 12:09:17 Pain of right shoulder joint 9355114636 2779593 M25.511 Insomnia 340489202 G47.0 0 [address] B[address]OCK [address] [address] 0 05/20/2021 13:48:41 05/27/2021 10:23:37 Hypertensive disorder 44244449 I10 Headache 68753459 R51.0 [address] [address] 0 06/07/2021 09:23:34 06/07/2021 16:29:59 Hypertensive disorder 00824486 I10 Chronic ob structive pulmonary disease 31033354 J44.9 Osteoarthr itis of acromioclavicular joint 251105914 M19.019 Bone spur of right shoulder 4597580991 78202 M25.711 [address] [address] 07/18/2021 10:55:23 07/18/2021 14:17:29 Chronic obstructive pulmonary disease 58996839 J44.9 Asthma 251257210 J45.90 9 Depressive disorder 3548 9007 F32.A Cramp in l ower leg associated with rest 190025620 G47.62 [address] INA BULLOCK [address] [address] 09/27/2021 13:49:09 09/28/2021 15:41:02 Essential hypertension 13006265 I10 Gastroesop hageal reflux disease 472594052 K21.9 Seborrheic keratosis 394 812734 L82.1 Lipoma of upper arm 1889 64830 D17.21 66010 Tomy Eryn Tusharkarolina, DO [address] [place] [address] 10/18/2021 10:50:28 10/18/2021 11:46:10 Active or passive immunization 955942696 Z23 Adult heal th examination 979411031 Z00.00 Advance care planning 71 6497559 Z71.89 Tobacco user 424041763 Z 72.0 Asthma 813393543 J45.90 9 Hypertensive disorder 38 552193 I10 [address]OCK [address] [address] 11/11/2021 15:30:25 11/11/2021 16:47:02 Anxiety 59098198 F41.1 [address]OCK [address] [address] 0 11/22/2021 10:27:02 11/22/2021 16:39:30 Acute bronchitis 86992134 J20.8 90451 Tomy Caceres, DO [address] [address] 12/05/2021 15:18:51 12/05/2021 15:54:45 Asthma 346279732 J45.909 Acute sinusitis 57648079 J01.90 [address]OCK [address] [address] 0 01/02/2022 14:09:59 01/02/2022 15:10:57 Fatigue 15716461 R53.83 Malignant hypertension 43854736 I10 Generalized rash 1837365 06 R21 Depressive disorder 3548 9007 F32.0 09935 INA BULLOCK [address] [address] 01/25/2022 09:50:27 01/25/2022 16:20:00 Chronic obstructive pulmonary disease 47761061 J41.0 Asthma 220979692 J45.20 Depressive disorder 3548 9007 F32.0 Hypertensive disorder 38 562496 I10 Pruritic rash 87635624 L 28.2 Seborrheic dermatitis of scalp 804173635 L21.0 Health Concerns Section Related Observation LastModified by Organization Detai ls LastModified Time None Recorded Concern Status LastModified by Organization Details LastModified Time None Recorded Advance Directives Directive None Recorded Payers Encounter Date Sequence Insurance Name Policy Number Policy Bella Covered Member ID Bella Member ID Guarantor Name 11/11/2021 1 [place] [employer] [place] Renetta E Sterste [id number] Renetta E Sterste 11/11/2021 2 [place] [id number] Renetta E Sterste [id number] Renetta E Sterste 11/22/2021 1 [place] Renetta E Sterste [id number] Renetta E Sterste 11/22/2021 2 [place] [id number] Renetta E Sterste [id number] Renetta E Sterste 12/05/2021 1 [place] [place] Renetta E Sterste [id number] Renetta E Sterste 12/05/2021 2 [place] [id number] Renetta E Sterste [id number] Renetta E Sterste 01/02/2022 1 [place] [place] Renetta E Sterste [id number] Renetta E Sterste 01/02/2022 2 [place] [id number] Renetta E Sterste [id number] Renetta E Sterste 01/25/2022 1 [place] [place] Renetta E Sterste [id number] Renetta E Sterste 01/25/2022 2 [place] [id number] Renetta E Sterste [id number] Renetta E Sterste Notes Date Note Type Note Provider Name and Address Organization Details Recorded Time 11/11/2021 text/html fu imaging and B P BP: echo and renal artery US were normalexcellent results, not related to her elevated blood pressuremy patient is very sensitive to medications, can't take most BP meds without a reactionthe patient reports her anxiety is severe, discussed starting her back on xanax with a trial of celexa as well try only half a tablet anxiety: will trial half a tablet of the celexa will fu in a month INA BULLOCK [address] [place], [address], [facility] 11/11/2021 16:28:59 11/22/2021 text/html c/o fever, fatig ue, headache, sinus congestion tele-med phone callpatient consents to phone call the patient reports dry cough, sinus congestion and pain, headache, fever of 100.3 Fthe patient reports cough is worse at nighther nose if very sensitive to smellsthe patient reports post-nasal drip which wakes her up at night the patient reports she cannot take a deep breath due to having coughing fits tested negative for COVID her grandson she was babysitting had a sinus infection INA BULLOCK [address] [facility],[place], [address], [facility] 11/22/2021 16:36:00 12/05/2021 text/html here for asha maya nd is doing ok overallstates that her matcher offbearer feels her bp is elevated due to her anxietyrelates that he told her he didnt want her to be on any meds and has since stopped all her bp medsso she has been off over the last 1 monthnote bp today is still elevatedshe was started on citalopram weeks ago and made her tired and sleepy so only took 1 pill and stoppedshe also had pND and throat congestionso since dr jones is running the show with this bp stuff we will have to follow this and his reccrelates she is frustrated with talking with matcher offbearer about smokingshe smokes less than a pack a day Tomy Caceres, [address] [facility],[place], [address], [facility] 12/05/2021 15:50:29 01/02/2022 text/html f/u BP the patient BP has reduced to 158/72 L arm sittingthe patient reports that cardio wasn't helpful wanted her to start an anti-depressantthe patient has several allergies; the patient agreed to an fertilizer supervisor referral back to Dr. García for more testing possible immune disorder given her rashes, fatigue and BP issues since all other testing has been normal will increase the olmesartan up to one and a half tablets will also add prazosin 1 mg for depression INA BULLOCK [address] [facility] [place], [address], [facility] 01/02/2022 15:12:23 01/25/2022 text/html f/u BP HTN: the patient has d/c all her medications due to side effectsthe patient states that they made her light-headed, fatigued, and out of it anxiety: the patient reports that she doesn't want to go up on the xanax due to concern about side effectsthe patient reports she feels very tired and depressedlacks ambition, lacks motivation depression: will continue to trial medication asthma/COPD: stable INA BULLOCK [address] [facility] [place], [address], [facility] 01/25/2022 10:34:32 OBGyn Episode No OBEpisode recorded.
--- OUTSIDE RECORDS SUMMARY | 2024-04-18 14:29 | XMS_ITS | Continuity of Care Document ---
Author Organization [facility] Address [address] [place] [address] Phone Care Team Providers Care Back Tender Fourdrinier Name Role Phone Nicolas Hernandez Unavailable Unavailable Allergies, Adverse Reactions, Alerts Substance Reaction Status Criticality No Known Allergies Active No Inform ation Procedures Procedure Date Office/Outpt E&M Established 10 Mins- Te lemedicine CT & [place] Office/Oupt E&M New Pt 45 Mins- CT & [place] Duplex Scan-extrem Veins; Uni/ CT & [place] S Advance Directives Directive Yes / No Effective Date File Name Other Directive No 03/10/2024 N/A WARNING:The information contained in this section is historical and is provided for information only and does not constitute a legal document or any assurance that the information is still accurate. Please verify the information with the ramos of the legal document before using it for clinical purposes. Encounters Encounter Description Practice Location Reason(s) For Visit Diagnoses Date Provider Providers Copied on Encounter Office/Outpt E&M Established 10 Mins- Telemedicine CT & [place] [facility], [address] [place] [address] [address], [place], [id number], [place] tel:[phone] [facility] [place] Cramp and spasmVenous insufficiency (chronic) (peripheral)E ssential (primary) hypertensionL ocalized edema Abner Valenzuela. [address] [facility], [facility] [address], [place], [id number], [place]. tel:[phone] Referring Provider: John Gutierrez, [address] [place] [address], [address]. tel:[phone] [facility], [address] [place] [address] Dr [address] [address], [id number], tel:[phone] [facility] [place] No Information Feb-3 0 4 Juan A DIAS RVT, RPVI Robert. [address] [place] [address], [place], [id number], [place]. tel:[phone] Office/Oupt E&M New Pt 45 Mins- CT & [place] [facility], [address] [place] [address] Dr [address], [id number], [place] tel:[phone] [facility] [place] Varicose veins of right lower extremity with other complications Essential (primary) hypertension Sep-2 3 4 Juan A DIAS RVT, MIKE Banuelos. [address] [place] [address], [place], [id number], [place]. tel:[phone] Referring Provider: John Gutierrez, [address] [place] [address], [address]. tel:[phone] [facility], [address] [place] [address] [address] [address], [id number], [place] tel:[phone] [facility] - [place] Varicose veins of right lower extremity with pain Sep-2 4 Juan A DIAS RVT, RPVI Robert. [address] [place] [address], [place], [id number], [place]. tel:[phone] Referring Provider: Vin Velazco MD, RVT, RPVI, [address] [place] [address], [place], [address] . tel:[phone] Family History Family Member Type Diagnosis Age At Onset No Information Payers Payer name Insurance type Covered republican ID Authoriza tion(s) Medicare DENYS DAVIDSON [id number] BCBS DENYS BAILON [id number] Medical Assistance DENYS AMES [id number] Social History Type Description Quantity Date Captured Comments Alcohol Use Details Unknown Caffeine Use Details Unknown Tobacco Use Status Current non-smoker Smoking Status Never Smoker Non-Smoking Tobacco Use Details : No Details Available : No Details Available Sex Female Vital Signs Date / Time: Height Weight BMI Pulse Rate Blood Pressure Temperature Respiratory Rate Body Surface Area Head Circumference Head Circ. Percentile Wt./Eder. Percentile BMI percentile Pulse Ox Inhaled Ox 62.600 kg (138.00 lbs) 29.0 0 kg/m eter (2) Chief Complaint And Reason For Visit No Information Reason For Referral Reason For Referral No Information Plan Of Treatment Date Type Action Status Goal Diet education completed Referral Ordered: Weight management: Referral to physician timeframe: 3 Months (related to Body mass index (BMI) 29.0-29.9, adult) ordered Appointment Renetta Junior BOOKED Appointment Renetta Junior BOOKED Appointment Renetta Junior BOOKED Appointment Renetta Junior BOOKED Appointment Renetta Junior BOOKED Appointment Renetta Junior BOOKED Appointment Renetta Junior BOOKED Appointment Renetta Junior BOOKED History Of Present Illness Encounter Date Complaint History Of Prese nt Illness No Information Functional Status Date Functional Assessmen t No Information Instructions Date Instruction Additional Infor mation Compression stocking usage as conservative measure Related to Localized edema Patient education booklet given Related to Localized edema Pre and post instruc tions reviewed and provided Related to Varicose 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
--- NOTE | 2024-04-18 14:33 | MHC.OFFVIS ---
Vital Signs 04/18/24 14:34 Height 4 ft 10 in BMI Reason not done Patient refused/unable BP 137/82 Blood Pressure Location Lt brachial Position Sitting Pulse 93 Intake Visit Reasons: Diverticulitis, initial assessment Intake Note: Renetta presents in the office as a new patient for diverticulitis for initial assessment. CC: She states that she has diverticulitis and a hiatal hernia. She states that she was having pains in the stomach but she has okay since being diagnosed. Denies any irregular bowel movements - she had spinal surgery 10 years ago and they severed a nerve so she has no control/feeling on the left side so she cannot fully empty her bowels. Video Engineer Required: No Allergies No Known Allergies Allergy (Verified 04/18/24 14:37) HPI Comments Details: 73 y.o F with PMH of asthma and HTN who is here after hx of acute diverticulitis in November 2023. Pt was seen in [facility] ER at the behest of her PCP for lower abdominal pain to r/o SBO. 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 This was her first episode of diverticulitis. Pt has never a colonoscopy. Has had stool based testing before. Not had any further episodes. No abd pain, N,V,D at baseline. No blood in stool. No fam hx of CRC. Same scan also showed a large para esophageal hiatal hernia. This was followed up by barium swallow 01/08/24 that showed large hiatal hernia as well as thickened gastric folds. Barium tablet went through easily. No difficulty swallowing, no regurgitation. Bloating after meals. Pt reports brother also has large paraesophageal hernia with even his colon involved. Sees Dr Key at [facility]. REPLACED BY [facility] Medical History Asthma HTN (hypertension) Surgical History History of hernia repair History of spinal surgery Family History Father CAD (coronary artery disease) Mother CHF (congestive heart failure) Brother CHF (congestive heart failure) Social History Alcohol intake: never Patient Tobacco Use Status: Current everyday Tobacco user Current occupational status: retired Current occupation: right handed Review of Systems Const All systems reviewed & are unremarkable except as noted in HPI and below Physical Exam Vital Signs: Last Vital Signs Pulse 93 04/18/24 14:34 BP 137/82 04/18/24 14:34 No apparent distress Nonicteric Abdomen soft, nondistended Alert and oriented x3, normal gait Assessment & Plan Assessment & Plan (1) Diverticulosis: Code(s): K57.90 - Diverticulosis of intestine, part unspecified, without perforation or abscess without bleeding Category: Medical (2) History of diverticulitis: Code(s): Z87.19 - Personal history of other diseases of the digestive system Category: Medical (3) Hiatal hernia: Code(s): K44.9 - Diaphragmatic hernia without obstruction or gangrene Category: Medical (4) Retroperitoneal mass: Code(s): R19.00 - Intra-abdominal and pelvic swelling, mass and lump, unspecified site Category: Medical Plan 1. Hx of diverticulitis: Needs a follow up colo to r/o underlying crc. Pt requests low volume prep. Miralax gatorade Rxed and instructions extensively reviewed. 2. Hiatal hernia: No alarm sx including dysphagia, regurgitation, N/V, pain. Plan: - Will perform egd at the same time as colo for eval. - Also referring to [facility] Dr Key as per her request. 3. Mesenteric soft tissue mass incidentally noted in the scan done at [facility] for diverticulitis. Ddx include reactive vs retroperitoneal fibrosis vs pannicultiis vs lymphoma. Plan: - Repeat contrasted imaging Follow up after procedures Orders: Orders CT abdomen pelvis w IV con Today K68.2 - Retroperitoneal fibrosis Referrals General Surgery Referral K44.9 - Diaphragmatic hernia without obstruction or gangrene Medications: New polyethylene glycol 3350 (Miralax) for colonoscopy prep - mix in 64 oz of gatorade and drink a cup every 10 mins as per instructions given 238 grams PO ONCE 238 grams 0RF Coding Level of Care Code New Pt Level 4 (58453) Complex EM visit Add On G2211 Diagnoses Diverticulosis K57.90 History of diverticulitis Z87.19 Hiatal hernia K44.9 Retroperitoneal mass R19.00
[2024-04-18 14:34] VITALS: BP 137/82; PULSE 93
== END 2024-04-18 15:18 | disposition home or self-care (01) ==
PROVIDERS: PCP Internal Medicine; Visit Provider Internal Medicine
DX: K57.90 Diverticulosis of intestine, part unspecified, without perforation or abscess without bleeding (principal); Z87.19 Personal history of other diseases of the digestive system; K44.9 Diaphragmatic hernia without obstruction or gangrene; R19.00 Intra-abdominal and pelvic swelling, mass and lump, unspecified site
CPT/HCPCS: 99204; G2211

== ENCOUNTER → 2024-04-18 14:26 | Outpatient (BNVA) | payer MEDICARE, SELFPAY | PROVIDERS: PCP Internal Medicine; Visit Provider Internal Medicine | DX: K57.90 Diverticulosis of intestine, part unspecified, without perforation or abscess without bleeding (principal); K44.9 Diaphragmatic hernia without obstruction or gangrene; K68.2 Retroperitoneal fibrosis; R19.00 Intra-abdominal and pelvic swelling, mass and lump, unspecified site; Z87.19 Personal history of other diseases of the digestive system | CPT/HCPCS: 99202 ==